=== PATIENT | female | born 1990 | race Two or more races ===

== ENCOUNTER 2022-07-01 22:50 | Emergency (ER) | payer BC, MEDICAID, OTHER ==
[~2022-07-01] VITALS: Ht 162.6 cm; Wt 72.1 kg
[2022-07-01 23:02] VITALS: BP 117/59
[2022-07-01 23:31] LABS: EOSINOPHILS % (AUTO) 0.3 % (0.0-6.0); HEMATOCRIT 36 % (33-45); HEMOGLOBIN 11.4 g/dL (11.5-14.8); LYMPHOCYTES # (AUTO) 1.9 K/uL (0.8-4.8); LYMPHOCYTES % (AUTO) 9.1 % (20.0-44.0); MEAN CORPUSCULAR HGB CONC 32 g/dl (31.0-36.0); MEAN CORPUSCULAR VOLUME 94 fL (82-100); MONOCYTES # (AUTO) 1.2 K/uL (0.1-1.30); MONOCYTES % (AUTO) 5.6 % (2.0-12.0); NEUTROPHILS # (AUTO) 18.2 K/uL (1.8-8.9); PLATELET COUNT (AUTO) 211 K/uL (150-450); RED BLOOD CELL COUNT(AUTO) 3.79 MIL/uL (4.0-5.2); WHITE BLOOD COUNT (AUTO) 21.4 K/uL (4.3-11.0)
--- NOTE | 2022-07-02 01:09 | NUR ---
PRESSURE DRESSING DONE TO SURGICAL SITE, BANDAGE WRAPPED ALL OVER
== END 2022-07-02 01:10 | disposition home or self-care (01) ==
LOC: ER 22:52
DX: L76.21 Postprocedural hemorrhage of skin and subcutaneous tissue following a dermatologic procedure (principal)
CPT/HCPCS: 36415; 85025-TC

== ENCOUNTER 2022-07-02 10:15 | Inpatient (IN) | payer BC ==
[~2022-07-02] VITALS: Ht 154.9 cm; Wt 82.1 kg
[2022-07-02] MEDS ORDERED: IV NS 0.9% 1,000 ML BAG IV ONE (10:30)
[2022-07-02 11:04] LABS: CALCIUM, SERUM 8.5 mg/dL (8.5-10.1); CREATININE 0.7 mg/dL (0.6-1.3); POTASSIUM 3.7 mmol/L (3.5-5.1)
[2022-07-02 11:22] LABS: BASOPHILS % (AUTO) 0.1 % (0.0-2.0); HEMATOCRIT 36 % (33-45); HEMOGLOBIN 10.7 g/dL (11.5-14.8); LYMPHOCYTES # (AUTO) 1.3 K/uL (0.8-4.8); LYMPHOCYTES % (AUTO) 14.5 % (20.0-44.0); MEAN CORPUSCULAR HGB CONC 30 g/dl (31.0-36.0); MEAN CORPUSCULAR VOLUME 102 fL (82-100); MONOCYTES # (AUTO) 0.9 K/uL (0.1-1.30); MONOCYTES % (AUTO) 9.4 % (2.0-12.0); NEUTROPHILS # (AUTO) 6.8 K/uL (1.8-8.9); PLATELET COUNT (AUTO) 185 K/uL (150-450); RED BLOOD CELL COUNT(AUTO) 3.54 MIL/uL (4.0-5.2); WHITE BLOOD COUNT (AUTO) 9.2 K/uL (4.3-11.0)
[2022-07-02] MEDS ORDERED: BENZOIN COMPOUND TINCT 60 ML BOTTLE ONE (12:49)
[2022-07-02] MEDS ORDERED: ONDANSETRON HCL/PF 4 MG/2 ML VIAL IVP PRN (16:00)
[2022-07-02] MEDS ORDERED: Z GUARD REMEDY 4 OZ OINT TP PRN (16:00)
[2022-07-02] MEDS ORDERED: MAGNESIUM HYDROXIDE 30 ML UDC PO PRN (16:00)
[2022-07-02] MEDS ORDERED: ACETAMINOPHEN 325 MG TABLET PO PRN (16:00)
[2022-07-02 18:00] VITALS: BP 104/46
[2022-07-02] MEDS: IV NS 0.9% 1,000 ML IV PRN (18:11)
[2022-07-02 20:00] VITALS: BP 96/47
[2022-07-02] MEDS: HYDROCODONE/APAP 5/325MG TABLET PO PRN (20:23)
[2022-07-03] MEDS: HYDROCODONE/APAP 5/325MG TABLET PO PRN ×4 (01:50→23:07)
[2022-07-03] MEDS: IV NS 0.9% 1,000 ML IV PRN (05:01)
[2022-07-03 08:00] VITALS: BP 106/60
[2022-07-03] MEDS: PANTOPRAZOLE 40 MG TABLET.DR PO SCH (08:41)
[2022-07-03 09:10] LABS: BASOPHILS % (AUTO) 0.2 % (0.0-2.0); EOSINOPHILS % (AUTO) 5.6 % (0.0-6.0); HEMATOCRIT 32 % (33-45); HEMOGLOBIN 10.3 g/dL (11.5-14.8); LYMPHOCYTES # (AUTO) 1.4 K/uL (0.8-4.8); LYMPHOCYTES % (AUTO) 20.6 % (20.0-44.0); MEAN CORPUSCULAR HGB CONC 32 g/dl (31.0-36.0); MEAN CORPUSCULAR VOLUME 95 fL (82-100); MONOCYTES # (AUTO) 0.4 K/uL (0.1-1.30); MONOCYTES % (AUTO) 6.3 % (2.0-12.0); NEUTROPHILS # (AUTO) 4.6 K/uL (1.8-8.9); NEUTROPHILS % (AUTO) 67.3 % (43.0-81.0); PLATELET COUNT (AUTO) 177 K/uL (150-450); RED BLOOD CELL COUNT(AUTO) 3.36 MIL/uL (4.0-5.2); WHITE BLOOD COUNT (AUTO) 6.9 K/uL (4.3-11.0)
[2022-07-03 10:06] LABS: CALCIUM, SERUM 8.2 mg/dL (8.5-10.1); CREATININE 0.6 mg/dL (0.6-1.3); MAGNESIUM 1.8 mg/dL (1.8-2.4); PHOSPHORUS 2.8 mg/dL (2.5-4.9); POTASSIUM 3.3 mmol/L (3.5-5.1)
[2022-07-03 16:00] VITALS: BP 100/44
[2022-07-03] MEDS ORDERED: POTASSIUM CHLORIDE 20 MEQ TAB.PRT.SR PO SCH (17:30)
[2022-07-04 08:00] VITALS: BP 110/54
[2022-07-04] MEDS: PANTOPRAZOLE 40 MG TABLET.DR PO SCH (08:02)
== END 2022-07-04 13:10 | disposition home health service (06) | DRG 422 ==
LOC: ER 10:19 → MED 16:49
PROVIDERS: ADMIT Internal Medicine; ATTEND Internal Medicine
DX: E86.0 Dehydration (principal); R62.7 Adult failure to thrive; S31.000A Unspecified open wound of lower back and pelvis without penetration into retroperitoneum, initial encounter; R53.1 Weakness; Z98.890 Other specified postprocedural states; Z68.34 Body mass index [BMI] 34.0-34.9, adult; Y92.009 Unspecified place in unspecified non-institutional (private) residence as the place of occurrence of the external cause; S41.102A Unspecified open wound of left upper arm, initial encounter; S41.101A Unspecified open wound of right upper arm, initial encounter; S31.109A Unspecified open wound of abdominal wall, unspecified quadrant without penetration into peritoneal cavity, initial encounter; Z48.89 Encounter for other specified surgical aftercare; X58.XXXA Exposure to other specified factors, initial encounter; Y93.89 Activity, other specified; G89.18 Other acute postprocedural pain
CPT/HCPCS: 36415; 80048-TC; 83735-TC; 84100-TC; 84702-TC; 85025-TC; 87081-TC; 97116-TC; 97530-TC; A6253; A6403; C9803; G0378; J7030

== ENCOUNTER 2024-01-07 17:48 | Emergency (ER) | payer BC, MEDICAID ==
[~2024-01-07] VITALS: Ht 157.5 cm; Wt 74.8 kg
[2024-01-07 18:48] LABS: APPEARANCE,URINE Clear (CLEAR); BILIRUBIN,URINE Negative (NEGATIVE); BLOOD, URINE Large Ery/uL (NEGATIVE); COLOR,URINE YELLOW (YELLOW); KETONES,URINE Negative (NEGATIVE); LEUKOCYTE ESTERASE ,URINE Moderate (NEGATIVE); NITRITE, URINE Negative (NEGATIVE); PROTEIN,URINE 30 mg/dl (NEGATIVE); UGLUCOSE Negative (NEGATIVE); UROBILINOGEN,URINE 0.2 EU/dL (0.2)
[2024-01-07 18:52] LABS: ADD URINE CULTURE YES; BACTERIA,URINE Few /HPF (None Seen); PREGNANCY TEST URINE QUAL NEGATIVE (NEGATIVE); SQUAMOUS EPITHELIAL CELL,UR Few /HPF (None Seen)
[2024-01-07 19:37] LABS: BASOPHILS % (AUTO) 0.2 % (0.0-2.0); EOSINOPHILS # (AUTO) 0.1 K/uL (0.0-0.7); EOSINOPHILS % (AUTO) 1.5 % (0.0-6.0); HEMATOCRIT 42 % (33-45); HEMOGLOBIN 13.7 g/dL (11.5-14.8); LYMPHOCYTES # (AUTO) 1.6 K/uL (0.8-4.8); MEAN CORPUSCULAR HEMOGLOBIN 31 PG (26.0-33.0); MEAN CORPUSCULAR HGB CONC 33 g/dl (31.0-36.0); MEAN CORPUSCULAR VOLUME 94 fL (82-100); MONOCYTES # (AUTO) 0.8 K/uL (0.1-1.30); MONOCYTES % (AUTO) 8.2 % (2.0-12.0); NEUTROPHILS # (AUTO) 6.9 K/uL (1.8-8.9); NEUTROPHILS % (AUTO) 73.1 % (43.0-81.0); PLATELET COUNT (AUTO) 213 K/uL (150-450); RED BLOOD CELL COUNT(AUTO) 4.43 MIL/uL (4.0-5.2); RED CELL DISTRIBUTION WIDTH 13.3 % (11.5-15.0); WHITE BLOOD COUNT (AUTO) 9.4 K/uL (4.3-11.0)
[2024-01-07 19:44] LABS: POTASSIUM 3.8 mmol/L (3.5-5.1)
[2024-01-07 19:45] LABS: CALCIUM, SERUM 9.1 mg/dL (8.5-10.1); CREATININE 0.7 mg/dL (0.6-1.3)
[2024-01-07 19:53] LABS: ALBUMIN 3.7 g/dL (3.4-5.0); BILIRUBIN,DIRECT 0.2 mg/dL (0.0-0.2); BILIRUBIN,TOTAL 0.5 mg/dL (0.2-1.0); TOTAL PROTEIN, SERUM 7.4 g/dL (6.4-8.2)
[2024-01-07] MEDS ORDERED: IOHEXOL-300 100 ML VIAL IV ONE (20:52)
[2024-01-07] MEDS ORDERED: IV NS 0.9% 250 ML IV ONE (20:52)
[2024-01-07] MEDS ORDERED: KETOROLAC TROMETHAMINE INJ 30 MG/ML VIAL ONE (22:00)
[2024-01-07] MEDS ORDERED: CEFTRIAXONE 1GM BAG (ER ONLY) 50 ML IV ONE (22:00)
[2024-01-07] MEDS: CEFTRIAXONE 1 G in IV D5W 50 ML IV ONE (22:06)
[2024-01-07] MEDS: KETOROLAC TROMETHAMINE INJ 30 MG/ML VIAL IV ONE (22:06)
[2024-01-07] MEDS ORDERED: IBUP-1490 PO (22:07)
[2024-01-07] MEDS ORDERED: CEPH500T PO (22:07)
[2024-01-07 22:24] VITALS: BP 115/79; TEMP 98.4; O2SAT 99
== END 2024-01-07 22:30 | disposition home or self-care (01) ==
LOC: ER 17:52
DX: N13.9 Obstructive and reflux uropathy, unspecified (principal); R10.31 Right lower quadrant pain; Z60.2 Problems related to living alone
CPT/HCPCS: 99285; 74177; 96365; 76856; 96375; 85025; 80048; 87086; 80076; 84703; 81001; 36415; J0696 ×2; J1885; J7060; J7050; Q9967

== ENCOUNTER 2025-05-05 17:16 | Emergency (ER) | payer MEDICAID, OTHER ==
[~2025-05-05] VITALS: Ht 157.5 cm; Wt 72.6 kg
[~2025-05-05 17:16] MED LIST: CEPH500T PO; IBUP-1490 PO
[2025-05-05 17:33] VITALS: BP 121/61; TEMP 98
[2025-05-05] MEDS ORDERED: AMOX-430 PO (19:11)
[2025-05-05 19:20] VITALS: O2SAT 98
[2025-05-05] MEDS ORDERED: TDAP [DIPH/PERTUSSIS/TET] 0.5 ML VIAL IM ONE ×2 (19:20→19:30)
== END 2025-05-05 19:30 | disposition home or self-care (01) ==
LOC: ER 17:24
DX: L03.211 Cellulitis of face (principal); W55.03XA Scratched by cat, initial encounter; Y93.89 Activity, other specified; Y92.89 Other specified places as the place of occurrence of the external cause; Y99.8 Other external cause status
CPT/HCPCS: 90715